=== PATIENT | female | born 1985 | race Caucasian/White ===

== ENCOUNTER 2016-09-12 19:18 | Emergency (ER) | payer BC ==
[~2016-09-12] VITALS: Ht 160 cm; Wt 80.2 kg
[2016-09-12 21:23] VITALS: BP 137/83
== END 2016-09-12 21:23 | disposition home or self-care (01) ==
LOC: EME 19:18
DX: S93.401A Sprain of unspecified ligament of right ankle, initial encounter (principal); X50.9XXA Other and unspecified overexertion or strenuous movements or postures, initial encounter; Y93.01 Activity, walking, marching and hiking
CPT/HCPCS: 73610; 99281; 99283